=== PATIENT | male | born 1980 | race Caucasian/White ===

== ENCOUNTER → 2019-03-15 | Outpatient (CLI) | payer BC ==
[~2019-03-15] MED LIST: CITALOPRAM HBR20 MG PO; NORCO 7.5-3251 EACH PO; PRAVASTATIN SOD20 MG; VITAMIN D PO
--- NOTE | 2019-03-15 10:54 | Diagnostic Imaging Report ---
EXAMINATION: MRI of the lumbar spine without contrast HISTORY: Left-sided sciatica COMPARISON: None available TECHNIQUE: Sagittal T1, T2, STIR; axial T2 and proton density. FINDINGS: It is assumed that there are 5 lumbar vertebrae. Curvature/Alignment: Straightening of the lumbar lordosis which may be related to muscle spasm or positional. Subtle left-sided curvature. Vertebrae: No evidence of recent fracture, infection, or neoplasm. Conus: Normal, terminating at L1 Cauda equina: Unremarkable. Lower thoracic: Minimal disc bulge at T10-T11 and T11-T12 without stenosis. Paraspinal soft tissues: Unremarkable. Degenerative changes: L1-L2: Unremarkable. L2-L3: Mild decreased disc height, T2 signal intensity and symmetric disc bulge. No canal or foraminal stenosis. L3-L4: Mild facet hypertrophy without canal or foraminal stenosis. L4-L5: Mild decreased disc height and T2 signal intensity, symmetric disc bulge with a small posterior central annular fissure and mild facet arthrosis. No canal or foraminal stenosis. Prominent edema within the interspinous soft tissues/ligamentous with possible sprain or bursitis. L5-S1: Approximately 8 mm AP diameter slightly inferiorly migrated left subarticular disc herniation, which is compressing the traversing left S1 nerve root. IMPRESSION: 1. Left subarticular and slightly inferiorly migrated disc extrusion at L5-S1 is compressing the left S1 nerve root and explains the patient's symptoms. 2. Edema within the L4-L5 interspinous ligament as detailed above. 3. Mild degenerative changes of the disc at L2-L3 and L4-L5 without stenosis. Signed by: Dr. Юлия Lu M.D. on 03/15/2019 10:50 AM
== END ==
LOC: MRI 07:29
PROVIDERS: ATTEND Family Medicine
DX: M54.32 Sciatica, left side (principal)
CPT/HCPCS: 72148

== ENCOUNTER 2019-03-30 05:31 | Observation (INO) | payer BC ==
[2019-03-28 13:22] LABS: BASOPHILS % 0.4 % (0.0-1.0); EOSINOPHILS # (AUTO) 0.1 (0.0-0.4); EOSINOPHILS % 1.8 % (0.0-6.0); HEMOGLOBIN 14.3 g/dL (14.0-18.0); LYMPHOCYTES # (AUTO) 1.7 (1.0-3.2); LYMPHOCYTES % 33.8 % (18.0-39.1); MEAN CORPUSCULAR HEMOGLOBIN 30.7 pg (28-32); MEAN CORPUSCULAR VOLUME 90.1 fL (81-99); MONOCYTES # (AUTO) 0.5 (0.2-0.8); MONOCYTES % 10.5 % (4.4-11.3); NEUTROPHILS # (AUTO) 2.7 (2.1-6.9); NEUTROPHILS % 53.3 % (38.7-80.0); PLATELET COUNT 329 x10e3/uL (140-360); RED BLOOD COUNT 4.66 x10e6/uL (4.3-5.7); RED CELL DISTRIBUTION WIDTH 12.2 % (11.7-14.4)
[2019-03-28 13:42] LABS: INR 0.95; PROTHROMBIN TIME 13.2 seconds (11.9-14.5)
[2019-03-28 13:43] LABS: PARTIAL THROMBOPLASTIN TIME 27.5 seconds (23.8-35.5)
[2019-03-28 13:49] LABS: ANION GAP 14.4 mmol/L (8-16); BLOOD UREA NITROGEN 15 mg/dL (7-26); BUN/CREATININE RATIO 16 (6-25); CALCIUM 9.6 mg/dL (8.4-10.2); CARBON DIOXIDE 25 mmol/L (22-29); CHLORIDE 104 mmol/L (98-107); CREATININE, SERUM 0.92 mg/dL (0.72-1.25); EST GLOMERULAR FILTRATION RATE > 60 ML/MIN (60-); GLUCOSE 81 mg/dL (74-118); POTASSIUM 4.4 mmol/L (3.5-5.1); SODIUM 139 mmol/L (136-145)
--- NOTE | 2019-03-28 14:30 | Diagnostic Imaging Report ---
EXAMINATION: CHEST 2 VIEWS INDICATION: Pre-operative COMPARISON: None FINDINGS: TUBES and LINES: None. LUNGS: The lung volumes are normal. No focal consolidation or pulmonary edema. PLEURA: No pleural effusion or pneumothorax. HEART AND MEDIASTINUM: The cardiomediastinal silhouette is normal in size and contour. BONES AND SOFT TISSUES: No acute fracture or dislocation. UPPER ABDOMEN: No free air under the diaphragm. IMPRESSION: No focal pneumonia or pulmonary edema. Signed by: Lidia Samaniego MD on 03/28/2019 2:26 PM
[~2019-03-30] VITALS: Ht 180.3 cm; Wt 95.7 kg
[~2019-03-30 05:31] MED LIST changes: -NORCO 7.5-3251 EACH PO
--- OUTSIDE RECORDS SUMMARY | 2019-03-30 05:34 | XMS REPORT ---
Author Author [facility] Address Unknown Phone Unavailable Care Team Providers Care Hepatology Physician Name Role Phone CELIA LOEPZ Unavailable Unavailable CARLOS ALBERTO RAMIREZ Unavailable Unavailable Problems This patient has no known problems. Allergies, Adverse Reactions, Alerts This patient has no known allergies or adverse reactions. Medications This patient has no known medications. Results Test Description Test Time Test Comments Text Results Atomic Results Result Comments CHEST 2 VIEWS 2019-03-28 14:26:00 [place] [address] Patient Name: LOVE HERNANDEZ MR #: [id number] : 1980 Age/Sex: 38/M Req #: [id number] Adm Physician: Ordered by: CELIA LOPEZ MD Report #: [id number] Location: OR Room/Bed: Procedure: [id number] DX/CHEST 2 VIEWS Exam Date: Exam Time: REPORT STATUS: Signed EXAMINATION: CHEST 2 VIEWS INDICATION: Pre-operative COMPARISON: None FINDINGS: TUBES and LINES: None. LUNGS: The lung volumes are normal. No focal consolidation or pulmonary edema. PLEURA: No pleural effusion or pneumothorax. HEART AND MEDIASTINUM: The cardiomediastinal silhouette is normal in size and contour. BONES AND SOFT TISSUES: No acute fracture or dislocation. UPPER ABDOMEN: No free air under the diaphra gm. IMPRESSION: No focal pneumonia or pulmonary edema. Signed by: Kaur Badillo MD on 03/28/2019 2:26 PM Dictated By: KAUR BADILLO MD 25 Transcribed By: MAXIMILIANO on 03/28/191425 COPY TO: CELIA LOPEZ MD MRI SPINE LUMBAR WO 2019-03-15 09:33:00 [place] [address] Patient Name: LOVE HERNANDEZ MR #: [id number] : 1980 Age/Sex: 38/M Req #: [id number] Adm Physician: Ordered by: CARLOS ALBERTO RAMIREZ DO Report #: [id number] Location: MRI Room/Bed: Procedure: [id number] MRI/MRI SPINE LUMBAR WO Exam Date: Exam Time: REPORT STATUS: Signed EXAMINATION: MRI of the lumbar spine without contrast HISTORY: Left-sided sciatica COMPARISON: None available TECHNIQUE: Sagittal T1, T2, STIR; axial T2 and proton density. FINDINGS: It is assumed that there are 5 lumbar vertebrae. Curvature/Alignment: Straightening of the lumbar lordosis which may be related to muscle spasm or positional. Subtle left-sided curvature. Vertebrae: No evidence of recent fracture, infection, or neoplasm. Conus: Normal, terminating at L1 Cauda equina: Unremarkable. Lower thoracic: Minimal disc bulge at T10-T11 and T11-T12 without stenosis. Paraspinal soft tissues: Unremarkable. Degenerative changes: L1-L2: Unremarkable. L2-L3: Mild decreased disc height, T2 signal intensity and symmetric disc bulge. No canal or foraminal stenosis. L3-L4: Mild facet hypertrophy without canal or foraminal stenosis. L4-L5: Mild decreased disc height and T2 signal intensity, symmetric disc bulge with a small posterior central annular fissure and mild facet arthrosis. No canal or foraminal stenosis. Prominent edema within the interspinous soft tissues/ligamentous with possible sprain or bursitis. L5-S1: Approximately 8 mm AP diameter slightly inferiorly migrated left subarticular disc herniation, which is compressing the traversing left S1 nerve root. IMPRESSION: 1. Left subarticular and slightly inferiorly migrated disc extrusion at L5-S1 is compressing the left S1 nerve root and explains the patient's symptoms. 2. Edema within the L4-L5 interspinous ligament as detailed above. 3. Mild degenerative changes of the disc at L2-L3 and L4-L5 without stenosis. Signed by: Dr. Garo Lu M.D. on 03/15/2019 10:50 AM Dictated By: GARO LU MD 1050 Transcribed By: MAXIMILIANO on 03/15/19 1050 COPY TO: CARLOS ALBERTO RAMIREZ DO
[2019-03-30] MEDS ORDERED: CEFAZOLIN SOD 1 GM/NS 50ML 100 ML IV ONE (05:56)
[2019-03-30] MEDS ORDERED: BUPIVACAINE 0.5%/EPI 30 ML SDV INJ ONE (07:06)
[2019-03-30] MEDS ORDERED: THROMBIN FOR SOLN 5,000 UNIT VIAL ONE (07:06)
[2019-03-30] MEDS ORDERED: BACITRACIN 50,000 UNIT VIAL ONE (07:07)
[2019-03-30] MEDS ORDERED: ACETAMINOPHEN 1000 MG/100 ML 100 ML IV ONE (07:24)
[2019-03-30] MEDS ORDERED: LIDOCAINE HCL (LTA) 4 ML SOLN ONE (07:25)
[2019-03-30] MEDS ORDERED: IBUPROFEN 800MG/ 250ML 250 ML IV ONE (08:06)
[2019-03-30] MEDS ORDERED: ZOLPIDEM TARTRATE 5 MG TAB PO PRN (08:30)
[2019-03-30] MEDS ORDERED: ACETAMINOPHEN 325 MG TAB PO PRN (08:30)
[2019-03-30] MEDS ORDERED: MAGNESIUM/ALUMINUM/SIMETHICONE 30 ML UDC PO PRN (08:30)
[2019-03-30] MEDS ORDERED: OXYCODONE/ACETAMINOPHEN 5-325 1 EACH TABLET PO PRN (08:30)
[2019-03-30] MEDS ORDERED: CEPACOL SORE THROAT LOZENGES PO PRN (08:30)
[2019-03-30] MEDS ORDERED: MORPHINE SULFATE INJ 4 MG/ML INJ 1ML IM PRN (08:30)
[2019-03-30] MEDS ORDERED: PROMETHAZINE HCL (IM) 25 MG/ML VIAL IM PRN (08:30)
[2019-03-30] MEDS ORDERED: ONDANSETRON HCL INJ 2MG/ML 2ML 2 MG/ML VIAL IV PRN (08:30)
[2019-03-30] MEDS ORDERED: CARISOPRODOL 350 MG TAB PO PRN (08:30)
[2019-03-30] MEDS: CITALOPRAM HYDROBROMIDE 20 MG TAB PO SCH (09:00)
--- NOTE | 2019-03-30 10:34 | Diagnostic Imaging Report ---
EXAM: lumbar spine, one view lateral DATE: 03/30/2019 INDICATION: Surgical guidance COMPARISON: Lumbar spine MRI of 03/15/2019 FINDINGS: Single crosstable projection of the lumbar spine demonstrates radiopaque lines projecting over the level of L5-S1. No acute fracture. Degenerative changes of the lower lumbar spine as before. IMPRESSION: Portable lumbar spine radiograph for operative guidance as above. Signed by: Lidia Samaniego MD on 03/30/2019 10:30 AM
--- NOTE | 2019-03-30 10:37 | Diagnostic Imaging Report ---
EXAM: lumbar spine, one view lateral DATE: 03/30/2019 INDICATION: Operative localization COMPARISON: Lumbar spine MRI of 03/15/2019, lumbar spine radiograph of earlier the same day. FINDINGS: Single crosstable projection of the lumbar spine demonstrates posterior surgical instrument at the level of L5-S1. No acute fracture. Degenerative changes of the lower lumbar spine as before. IMPRESSION: Intraoperative lateral image showing surgical instrument posteriorly at L5-S1. Signed by: Lidia Samaniego MD on 03/30/2019 10:34 AM
--- NOTE | 2019-03-30 11:00 | NUR ---
PT TO THE FLOOR AT THIS TIME. PT DENIES NEEDS AT THIS TIME.
[2019-03-30 11:30] VITALS: BP 106/73
[2019-03-30 12:00] VITALS: BP 113/79
[2019-03-30] MEDS: LACTATED RINGER'S 1,000 ML IV SCH ×3 (12:10→20:08)
[2019-03-30] MEDS: HYDROMORPHONE 2MG/ML 2 MG/ML ML IV PRN ×2 (12:11→20:16)
--- NOTE | 2019-03-30 12:11 | Operative Report ---
DATE OF PROCEDURE: 03/30/2019 SURGEON: Pietro Marsh MD PREOPERATIVE DIAGNOSIS: Left L5-S1 disk herniation with radiculopathy, M51.17. POSTOPERATIVE DIAGNOSIS: Left L5-S1 disk herniation with radiculopathy, M51.17. PROCEDURE: Left L5-S1 laminotomy, medial facetectomy, and microsurgical diskectomy, 42385. ANESTHESIA: General. INDICATIONS: The patient is a 38-year-old man, who presents with a left L5-S1 disk herniation with intractable S1 radiculopathy and was taken to the operating room for microsurgical diskectomy. PROCEDURE IN DETAIL: After induction of general anesthesia, the patient was placed on the operating table in prone position over a Dimitri frame. The lumbar region was prepped and draped in sterile fashion. A preoperative x-ray was obtained. A small midline incision was created. Lumbar fascia was opened in left of midline and a subperiosteal dissection was carried out to expose the left-sided L5 and S1 laminae and the medial aspect of the facet joint. A second x-ray confirmed correct localization. The operating microscope was brought in. A high-speed drill equipped with bladimir bur was used to drill the inferior aspect of lamina of L5 and the superior rim of the lamina of S1 and the medial rim of the L5-S1 facet joint. The ligamentum flavum was resected. The dural sac and the S1 nerve root were exposed. The nerve root was slightly retracted medially. The epidural veins were bipolar coagulated and divided with micro scissors. The disk herniation came into view. The posterior longitudinal ligament was incised with the tip of a #11 blade. The subligamentous portion of the disk herniation was retrieved with a micro ball probe and removed. The opening into the annulus of the disk was enlarged with a #11 blade and the loose contents of the disks were evacuated with angled curettes and pituitary rongeurs. A ball probe was passed into the ventral epidural space and directed inferiorly and used to retrieve another fragment of extruded disk, which was removed. Excellent decompression was thus achieved. The wound was copiously irrigated with bacitracin solution. Meticulous hemostasis was secured. Retractor was removed. The lumbar fascia was closed with 0 Vicryl suture, subcutaneous layer was closed with 2-0 Vicryl sutures, and the skin was closed with 3-0 Monocryl sutures in subcuticular fashion. Steri-Strips and a dressing were applied. The patient was awakened, extubated, and taken to postanesthesia care unit in stable condition. No intraoperative complications were encountered. ESTIMATED BLOOD LOSS: 10 mL. Pietro Marsh MD PP/DANA /[id number]
[2019-03-30] MEDS: CEFAZOLIN SOD 1 GM/NS 50ML 50 ML IV SCH ×2 (14:16→21:04)
[2019-03-30] MEDS ORDERED: MIDAZOLAM HCL 2 MG/2 ML VIAL ONE (15:16)
[2019-03-30] MEDS ORDERED: FENTANYL CITRATE/PF 100MCG/2 ML INJ ONE (15:16)
[2019-03-30 16:00] VITALS: BP 121/62
[2019-03-30] MEDS ORDERED: SEVOFLURANE INHAL SOLN 250 ML PEN BTL ONE (16:59)
[2019-03-30] MEDS ORDERED: LIDOCAINE HCL 2% LOCAL INJ 5 ML SDV VIAL INJ ONE (16:59)
[2019-03-30] MEDS ORDERED: PROPOFOL IV EMULSION 10 MG/ML 20 ML VIAL ONE (16:59)
[2019-03-30] MEDS ORDERED: ONDANSETRON HCL INJ 2MG/ML 2ML 2 MG/ML VIAL ONE (16:59)
[2019-03-30] MEDS ORDERED: LIDOCAINE HCL 2% JELLY 5 ML TUBE ONE (16:59)
[2019-03-30] MEDS ORDERED: NEOSTIGMINE 5 MG/5ML SYR ONE (16:59)
[2019-03-30] MEDS ORDERED: DEXAMETHASONE SOD PHOS INJ 4 MG/ML VIAL ONE (16:59)
[2019-03-30] MEDS ORDERED: GLYCOPYRROLATE INJ 1MG/ 5 ML SYR ONE (16:59)
[2019-03-30] MEDS ORDERED: ROCURONIUM BROMIDE 10 MG/ML 5ML VIAL ONE (16:59)
[2019-03-30 19:17] VITALS: BP 121/62
[2019-03-30 20:00] VITALS: BP 120/75
[2019-03-30] MEDS ORDERED: PRAVASTATIN 20 MG TAB PO SCH (21:00)
--- NOTE | 2019-03-30 22:00 | NUR ---
Report received from NAVEED Esteban. Pt resting comfortably in bed in no distress. Pt c/o pain 09/22 at this time. SCDs and KD hose in place. Bed is in low locked position and call light is in reach. Will continue to monitor pt.
[2019-03-31 00:46] VITALS: BP 105/62
[2019-03-31 04:31] VITALS: BP 104/61
--- NOTE | 2019-03-31 04:34 | NUR ---
Pt ambulating unit at this time without difficulty. Will continue to monitor patient.
[2019-03-31] MEDS: CEFAZOLIN SOD 1 GM/NS 50ML 50 ML IV SCH (05:33)
[2019-03-31] MEDS: HYDROMORPHONE 2MG/ML 2 MG/ML ML IV PRN (05:50)
--- NOTE | 2019-03-31 07:17 | NUR ---
Bedside Report given to NAVEED Oglesby. Patient has no c/o of pain at this time. Bed is in low locked position and call light is in reach.
--- NOTE | 2019-03-31 07:31 | NUR ---
MET PATIENT DURING REPORT, PATIENT DENIED PAIN, INCISION SITE HAS DRY DRESSING IN PLACE WITH BROWN DRY BLOOD SPOT, PATIENT SHOW NO SIGNS OF DISTRESS.
[2019-03-31 08:00] VITALS: BP 114/58
[2019-03-31] MEDS: CITALOPRAM HYDROBROMIDE 20 MG TAB PO SCH (08:44)
[2019-03-31 08:53] VITALS: BP 114/58
[2019-03-31] MEDS ORDERED: NORCO 7.5-3251 EACH PO (10:11)
== END 2019-03-31 10:35 | disposition home or self-care (01) ==
LOC: OR 05:31 → PACU V 08:26 → IMCU 11:14
PROVIDERS: ADMIT Neurological Surgery; ATTEND Neurological Surgery
DX: M51.17 Intervertebral disc disorders with radiculopathy, lumbosacral region (principal); Z01.810 Encounter for preprocedural cardiovascular examination; Z01.812 Encounter for preprocedural laboratory examination; Z01.811 Encounter for preprocedural respiratory examination; E78.5 Hyperlipidemia, unspecified
CPT/HCPCS: 36415; 63047; 71046; 72020; 80048; 85025; 85610; 85730; 86850; 86900; 88304; 93005; G0378 ×2; J0131; J0690; J1100; J1170 ×2; J2001 ×2; J2250; J2405; J2704; J3010; J3490; J7121

== ENCOUNTER 2019-04-28 06:59 | Outpatient (RCR) | payer BC ==
[~2019-04-28 06:59] MED LIST changes: +NORCO 7.5-3251 EACH PO
== END 2019-05-13 ==
LOC: PT 06:59
PROVIDERS: ATTEND Neurological Surgery
DX: M51.17 Intervertebral disc disorders with radiculopathy, lumbosacral region (principal)
CPT/HCPCS: 97139